=== PATIENT | male | born 1985 ===

== ENCOUNTER 2018-08-06 18:02 | Day surgery (SDC) ==
[~2018-08-06 18:02] MED LIST: Dexamethasone 20 MG/5 ML VIAL ONE; Glycopyrrolate 0.2 MG/ML 5 ML SYRINGE ONE; Ketorolac Tromethamine 30 MG/ML VIAL ONE; Lidocaine 1% PF 5 ML VIAL ONE; Ondansetron PF 4 MG/2 ML Vial ONE; PROPOFOL 200 MG/20 ML VIAL ONE; Rocuronium Bromide 10 MG/ML (10ML VIAL) ONE; Succinylcholine Chloride 20 MG/ML 10 ml SYRINGE FS ONE
[2018-08-06] MEDS ORDERED: Bupivacaine/Epinephrine 0.25% 30 ML VIAL ONE (18:11)
[2018-08-06] MEDS ORDERED: Fentanyl 100 MCG/2 ML VIAL ONE (18:18)
[2018-08-06] MEDS ORDERED: Piperacillin/Tazobactam 3.375 GM in Sodium Chloride 0.9% 100 ML IVPB SCH (18:45)
[2018-08-06] MEDS ORDERED: Sodium Chloride 0.9% 1,000 ML IV SCH (18:45)
[2018-08-06] MEDS ORDERED: Meperidine HCl/PF 25 MG/ML VIAL ONE (20:00)
--- NOTE | 2018-08-07 02:43 | OP ---
DATE OF PROCEDURE: 08/06/2018 PREOPERATIVE DIAGNOSIS: Acute appendicitis. POSTOPERATIVE DIAGNOSIS: Acute appendicitis. PROCEDURE PERFORMED: Laparoscopic appendectomy. ANESTHESIA: General. ESTIMATED BLOOD LOSS: Minimal. COMPLICATION: None. SPECIMEN: Appendix. FINDINGS: Appendicitis. DESCRIPTION OF PROCEDURE: The patient was taken to the operating room and laid supine on the operating room table. After general anesthetic was obtained, a York was placed. The abdomen was shaved, prepped, and draped in sterile fashion. A curved incision was made below the umbilicus. Cautery dissected down to and score the fascia. Abdominal cavity was entered bluntly using a Dina clamp. Holding stitch of PDS was placed on each side of the fascia. Marcia trocar was placed. High-flow pneumoperitoneum was obtained. A suprapubic 5-mm port and left lower quadrant 5-mm port were placed under direct visualization. The cecum was rolled over to reveal acute appendicitis. A small window was made at the base of the appendix and the mesoappendix. Laparoscopic stapler was fired across the base of the appendix. A vascular reload was fired across the mesoappendix. The appendix was placed in an EndoCatch bag and brought out through the Marcia. There was no bleeding on the staple line. The abdomen and pelvis were irrigated using a sterile solution. There was no evidence of damage to any intraabdominal structures. No evidence of perforation. All port sites were infiltrated using local anesthetic. All ports were removed under camera visualization. Pneumoperitoneum was let down. The PDS was used to close the fascial defect below the umbilicus. All incisions were irrigated and closed using 4-0 Monocryl and Dermabond. The patient was sent to Recovery in stable condition. All instrument counts, needle counts, and lap counts were correct. Job ID: [id number]
--- NOTE | 2018-08-07 03:01 | HP ---
CHIEF COMPLAINT: Right lower quadrant pain. HISTORY OF PRESENT ILLNESS: This is a 32-year-old male, who presents with pain in his right lower abdomen since last night, described as sharp, intermittent. It was more severe today. He saw Dr. Ford in [place]. He ordered outpatient labs and a CT scan, which revealed acute appendicitis. The patient's pain is improved, only tender on exam. No significant fever or chills today. No nausea, vomiting, change in stools. No history of chronic abdominal pain or inflammatory bowel disease. PAST MEDICAL HISTORY: He denies. PAST SURGICAL HISTORY: He denies. MEDICATIONS: Medicines taken daily, none. ALLERGIES: NO KNOWN DRUG ALLERGIES. SOCIAL HISTORY: No smoking, alcohol or other drugs. REVIEW OF SYSTEMS: 10-system review of systems otherwise negative unless described above. HEENT: Sclerae anicteric. Oropharynx clear. NECK: No lymphadenopathy. CHEST: Clear. HEART: Regular rate and rhythm. ABDOMEN: Soft. He is tender in the right lower quadrant with localized guarding without rebound. No abdominal or inguinal hernias. No ischemia or edema to extremities. DIAGNOSTIC STUDIES: CT scan shows acute appendicitis. ASSESSMENT: Acute appendicitis. PLAN: Laparoscopic appendectomy. Risks, benefits, and alternatives were discussed. He gives consent. We will do this tonight. Job ID: [id number]
== END 2018-08-06 21:52 | disposition home or self-care (01) ==
LOC: ERS 18:02 → SDC/OP 18:48
PROVIDERS: ATTEND Surgery
PROC: 0DTJ4ZZ Resection of Appendix, Percutaneous Endoscopic Approach (ICD-10-PCS; principal; 2018-08-06)
DX: K35.80 Unspecified acute appendicitis (principal); J30.81 Allergic rhinitis due to animal (cat) (dog) hair and dander
CPT/HCPCS: 88304; 96374; 99284; J0131; J1100; J1885; J2001; J2175; J2405; J2543; J2704; J3010; J7050